=== PATIENT | female | born 1975 | race Caucasian/White ===

== ENCOUNTER 2023-03-19 11:47 | Emergency (ER) | payer OTHER ==
[~2023-03-19] VITALS: Ht 172.7 cm; Wt 77.1 kg
[2023-03-19] MEDS ORDERED: Robaxin750 MG PO (12:56)
[2023-03-19] MEDS ORDERED: VERAPAMIL PO (12:56)
[2023-03-19] MEDS ORDERED: MOTION RELIEF25 M1 PO (12:56)
[2023-03-19] MEDS ORDERED: RIZATRIPTAN10 MG SL (12:57)
[2023-03-19] MEDS ORDERED: NORT10 PO (12:57)
[2023-03-19] MEDS ORDERED: AIMOVIG AU70 MG/1 ML (12:58)
[2023-03-19 17:45] VITALS: BP 120/75
[2023-03-19] MEDS ORDERED: TRANSDERM-SCOP1 EA10 TD (17:58)
[2023-03-19] MEDS ORDERED: Percocet 5-3251 EACH PO (17:59)
== END 2023-03-19 18:29 | disposition home or self-care (01) ==
LOC: ER 11:47
DX: R42 Dizziness and giddiness (principal); R51.9 Headache, unspecified; Z88.5 Allergy status to narcotic agent; Z88.8 Allergy status to other drugs, medicaments and biological substances; Z79.899 Other long term (current) drug therapy
CPT/HCPCS: 70551; 99284-25; A9270